=== PATIENT | male | born 1960 | race Caucasian/White ===

== ENCOUNTER → 2020-12-15 | Outpatient (CLI) | payer BC, OTHER | LOC: M PLAIMG 07:30 | PROVIDERS: ATTEND Family Medicine | DX: Z53.9 Procedure and treatment not carried out, unspecified reason (principal) ==

== ENCOUNTER 2022-12-06 12:34 | Day surgery (SDC) | payer BC, OTHER ==
[~2022-12-06] VITALS: Ht 182.9 cm; Wt 140.8 kg
[~2022-12-06 12:34] MED LIST: ACET-897 PO; ADV250INH INH; ATOR1TAB19 PO; ENTR1TAB PO; EPIP0.3I2 IM; FURO20TA2 PO; LEXA1TAB PO; LOPR1TAB6 PO; METO1TAB33 PO; MONT10TA97 PO; NARC1SPR; NS 1,000 ML IV ONE; OMEP10CASR PO; PRED10PA PO; PROA1AER2 IN; SPIR-10 PO; VALS40TA9 PO; VITMTA PO; XARE10TA PO; [UNRECOGNIZED DRUG - CODE] PO
[2022-12-06] MEDS ORDERED: fentaNYL 100 MCG/2 ML INJECTION As Ordered ONE (14:43)
[2022-12-06 15:02] VITALS: TEMP 96.8
[2022-12-06] MEDS ORDERED: propofoL 200 MG/20 ML VIAL As Ordered ONE (15:19)
[2022-12-06 15:20] VITALS: BP 124/76; O2SAT 98
== END 2022-12-06 15:20 | disposition home or self-care (01) ==
LOC: M OPP 12:34
PROVIDERS: ATTEND Internal Medicine Gastroenterology
DX: K22.89 Other specified disease of esophagus (principal); K29.70 Gastritis, unspecified, without bleeding; R13.10 Dysphagia, unspecified; Z79.02 Long term (current) use of antithrombotics/antiplatelets; Z79.1 Long term (current) use of non-steroidal anti-inflammatories (NSAID); Z79.51 Long term (current) use of inhaled steroids; Z79.82 Long term (current) use of aspirin; Z79.84 Long term (current) use of oral hypoglycemic drugs; Z79.899 Other long term (current) drug therapy; Z88.0 Allergy status to penicillin; Z88.1 Allergy status to other antibiotic agents; Z88.6 Allergy status to analgesic agent; Z91.040 Latex allergy status
CPT/HCPCS: 43239; 88305; J3010